=== PATIENT | female | born 1995 | race Caucasian/White ===

== ENCOUNTER → 2021-04-10 14:58 | Outpatient (CLI) | payer MEDICAID, SELFPAY ==
--- NOTE | 2021-04-10 15:48 | US_ITS ---
INDICATION: viability/ light bleeding -- CALL WITH READ BEFORE PATIENT LEAVES EXAMINATION: US OB Transvaginal TECHNIQUE: Transvaginal (for optimal evaluation of the adnexa) pelvic ultrasound was performed. Grayscale, spectral waveform, and color flow Doppler evaluation of the adnexa. COMPARISON: None. FINDINGS: UTERUS: Measures 9.3 x 6 x 4.1 cm. RIGHT OVARY: Measures 3.5 x 2.7 x 2.1 cm. Normal. LEFT OVARY: Measures 2.2 x 1.6 x 1.3 cm. Normal. FREE FLUID: None. INTRAUTERINE GESTATIONAL SAC(s) (size/shape): Single. Mean sac diameter of 1.3 cm. YOLK SAC: Not identified POLE: Not identified US/Transvaginal w/Preg US IMPRESSION: Intrauterine of uncertain viability. No yolk sac or embryo is visualized. This may represent early . Recommend follow-up OB ultrasound in two weeks. Electronically Signed: Redd Rios MD at 16:35 EDT Tel , Service support ,
== END ==
PROVIDERS: Referring Provider Nurse Practitioner Women's Health; Visit Provider Nurse Practitioner Women's Health
DX: O26.899 Other specified pregnancy related conditions, unspecified trimester (principal); Z67.91 Unspecified blood type, Rh negative; O20.0 Threatened abortion
CPT/HCPCS: 36415; 76817; 86850; 86900; 86901

== ENCOUNTER → 2021-04-11 09:22 | Outpatient (CLI) | payer MEDICAID, SELFPAY ==
[2021-04-11 08:48] VITALS: BMI 24.6
[2021-04-11 10:51] LABS: hCG Titer Quant., Serum 13661 mIU/mL (1-3)
== END ==
PROVIDERS: Referring Provider Obstetrics & Gynecology; Visit Provider Obstetrics & Gynecology
DX: O03.9 Complete or unspecified spontaneous abortion without complication (principal)
CPT/HCPCS: 36415; 84702

== ENCOUNTER → 2021-04-13 10:22 | Outpatient (CLI) | payer MEDICAID, SELFPAY ==
[2021-04-11 08:48] VITALS: BMI 24.6
[2021-04-13 11:34] LABS: hCG Titer Quant., Serum 13476 mIU/mL (1-3)
== END ==
PROVIDERS: Visit Provider Obstetrics & Gynecology
DX: O03.9 Complete or unspecified spontaneous abortion without complication (principal)
CPT/HCPCS: 36415; 84702

== ENCOUNTER → 2021-04-14 15:19 | Outpatient (CLI) | payer MEDICAID, SELFPAY ==
[2021-04-14 14:41] VITALS: BMI 24.6
[2021-04-14 18:12] LABS: hCG Titer Quant., Serum 13914 mIU/mL (1-3)
== END ==
PROVIDERS: Referring Provider Obstetrics & Gynecology; Visit Provider Obstetrics & Gynecology
DX: O03.9 Complete or unspecified spontaneous abortion without complication (principal)
CPT/HCPCS: 36415; 84702

== ENCOUNTER → 2021-04-25 13:12 | Outpatient (CLI) | payer MEDICAID, SELFPAY ==
[2021-04-14 14:41] VITALS: BMI 24.6
[2021-04-25 14:19] LABS: hCG Titer Quant., Serum 9029 mIU/mL (1-3)
== END ==
PROVIDERS: Referring Provider Obstetrics & Gynecology; Visit Provider Obstetrics & Gynecology
DX: O03.9 Complete or unspecified spontaneous abortion without complication (principal)
CPT/HCPCS: 36415; 84702

== ENCOUNTER → 2021-05-03 11:36 | Outpatient (CLI) | payer MEDICAID, SELFPAY ==
[2021-04-14 14:41] VITALS: BMI 24.6
[2021-05-03 12:40] LABS: hCG Titer Quant., Serum 3114 mIU/mL (1-3)
== END ==
PROVIDERS: Referring Provider Obstetrics & Gynecology; Visit Provider Obstetrics & Gynecology
DX: O03.9 Complete or unspecified spontaneous abortion without complication (principal)
CPT/HCPCS: 36415; 84702

== ENCOUNTER → 2021-05-18 12:41 | Outpatient (CLI) | payer MEDICAID, SELFPAY ==
[2021-04-14 14:41] VITALS: BMI 24.6
[2021-05-18 13:40] LABS: hCG Titer Quant., Serum 8 mIU/mL (1-3)
== END ==
PROVIDERS: Visit Provider Obstetrics & Gynecology
DX: O03.9 Complete or unspecified spontaneous abortion without complication (principal)
CPT/HCPCS: 36415; 84702

== ENCOUNTER 2021-10-30 17:42 | Outpatient (CLI) | payer MEDICAID, SELFPAY ==
[2021-10-30 18:33] LABS: hCG Titer Quant., Serum 10 mIU/mL (1-3)
== END 2021-10-30 23:59 | disposition short-term general hospital (02) ==
LOC: LAB 17:43
PROVIDERS: Visit Provider Obstetrics & Gynecology
DX: Z34.90 Encounter for supervision of normal pregnancy, unspecified, unspecified trimester (principal)
CPT/HCPCS: 36415; 84702

== ENCOUNTER 2021-11-01 17:57 | Outpatient (CLI) | payer MEDICAID, SELFPAY ==
[2021-11-01 19:11] LABS: hCG Titer Quant., Serum 5 mIU/mL (1-3)
== END 2021-11-01 23:59 | disposition short-term general hospital (02) ==
LOC: LAB 18:00
PROVIDERS: Visit Provider Obstetrics & Gynecology
DX: N91.2 Amenorrhea, unspecified (principal)
CPT/HCPCS: 84702

== ENCOUNTER 2021-11-29 11:38 | Outpatient (CLI) | payer MEDICAID, SELFPAY ==
[2021-11-29 12:53] LABS: hCG Titer Quant., Serum 67 mIU/mL (1-3)
== END 2021-11-29 23:59 | disposition home or self-care (01) ==
PROVIDERS: Referring Provider Obstetrics & Gynecology; Visit Provider Obstetrics & Gynecology
DX: O03.9 Complete or unspecified spontaneous abortion without complication (principal)
CPT/HCPCS: 36415; 84702

== ENCOUNTER 2021-12-01 09:40 | Outpatient (CLI) | payer MEDICAID, SELFPAY ==
[2021-12-01 12:06] LABS: hCG Titer Quant., Serum 152 mIU/mL (1-3)
== END 2021-12-01 23:59 | disposition home or self-care (01) ==
LOC: LAB 09:42
PROVIDERS: PCP Family Medicine; Referring Provider Obstetrics & Gynecology; Visit Provider Obstetrics & Gynecology
DX: O36.80X0 Pregnancy with inconclusive fetal viability, not applicable or unspecified (principal); O09.90 Supervision of high risk pregnancy, unspecified, unspecified trimester; Z3A.00 Weeks of gestation of pregnancy not specified
CPT/HCPCS: 36415; 84702

== ENCOUNTER 2021-12-03 15:00 | Outpatient (CLI) | payer MEDICAID, SELFPAY ==
[2021-12-03 16:08] LABS: hCG Titer Quant., Serum 318 mIU/mL (1-3)
== END 2021-12-03 23:59 | disposition home or self-care (01) ==
LOC: LAB 15:01
PROVIDERS: PCP Family Medicine; Visit Provider Obstetrics & Gynecology
DX: Z34.90 Encounter for supervision of normal pregnancy, unspecified, unspecified trimester (principal)
CPT/HCPCS: 36415; 84702

== ENCOUNTER 2021-12-18 13:53 | Outpatient (CLI) | payer MEDICAID, SELFPAY ==
[2021-12-18] MEDS: Dextrose 5%-Lactated Ringers 1,000 ML 999 ML IV (14:20)
[2021-12-18 14:22] VITALS: BP 107/72; PULSE 71; RESP 16; TEMP 36.6; O2SAT 100
[2021-12-18] MEDS: Ondansetron 4 MG/2 ML Vial IV (14:32)
[2021-12-18 15:30] VITALS: BP 100/54; PULSE 73
== END 2021-12-18 23:59 | disposition home or self-care (01) ==
LOC: MEDOUTP 13:54
PROVIDERS: PCP Family Medicine; Referring Provider Nurse Practitioner Women's Health; Visit Provider Nurse Practitioner Women's Health
DX: E86.0 Dehydration (principal)
CPT/HCPCS: 96361; 96374; A4216; J2405

== ENCOUNTER 2021-12-22 14:02 | Outpatient (CLI) | payer MEDICAID, SELFPAY ==
[2021-12-22 14:08] VITALS: BP 106/68; PULSE 77; RESP 16; TEMP 36.1; O2SAT 97; BMI 27.4
[2021-12-22] MEDS: Dextrose 5%-Lactated Ringers 1,000 ML 999 ML IV (14:14)
[2021-12-22] MEDS: Ondansetron 4 MG/2 ML Vial IV (14:40)
[2021-12-22 15:24] VITALS: BP 95/62; PULSE 70; RESP 16
== END 2021-12-22 23:59 | disposition home or self-care (01) ==
LOC: MEDOUTP 14:02
PROVIDERS: PCP Family Medicine; Referring Provider Nurse Practitioner Women's Health; Visit Provider Nurse Practitioner Women's Health
DX: E86.0 Dehydration (principal)
CPT/HCPCS: 96361; 96374; A4216; J2405

== ENCOUNTER 2021-12-24 12:55 | Outpatient (CLI) | payer MEDICAID, SELFPAY ==
[2021-12-24] MEDS: Dextrose 5%-Lactated Ringers 1,000 ML 999 ML IV (13:18)
[2021-12-24] MEDS: 0.9% NaCl Peripheral Flush Adult/Peds IV ×2 (13:18→13:26)
[2021-12-24] MEDS: Ondansetron 4 MG/2 ML Vial IV (13:18)
[2021-12-24 13:27] VITALS: BP 94/68; PULSE 82; RESP 16; TEMP 36.6; O2SAT 98
[2021-12-24 14:34] VITALS: BP 102/60; PULSE 68; RESP 16; TEMP 36.3; O2SAT 100
== END 2021-12-24 23:59 | disposition home or self-care (01) ==
LOC: MEDOUTP 12:56
PROVIDERS: PCP Family Medicine; Referring Provider Obstetrics & Gynecology; Visit Provider Obstetrics & Gynecology
DX: E86.0 Dehydration (principal)
CPT/HCPCS: 96361; 96374; A4216; J2405

== ENCOUNTER 2021-12-29 16:06 | Outpatient (CLI) | payer MEDICAID, SELFPAY ==
[2021-12-29 16:39] LABS: Amphetamine Urine VISTA NEGATIVE (<1000 ng/mL); Barbiturate Urine VISTA NEGATIVE (< 200 ng/mL); Benzodiazepine Urine VISTA NEGATIVE (< 200 ng/mL); Cocaine Urine VISTA NEGATIVE (< 300 ng/mL); Ecstacy Urine VISTA NEGATIVE (< 500 ng/mL); Methadone Urine VISTA NEGATIVE (< 300 ng/mL); PCP Urine VISTA NEGATIVE (< 25 ng/mL); THC Urine VISTA NEGATIVE (< 50 ng/mL); Vista UDS pH Range 5
[2021-12-31 22:07] LABS: Chlamydia By Nucleic Acid AMP Negative (Negative)
[2022-01-01 16:31] LABS: Gonococcus By Nucleic Acid AMP Negative (Negative)
[2022-01-04 17:06] LABS: HPV Reflexed? NOT INDICATED
== END 2021-12-29 23:59 | disposition home or self-care (01) ==
LOC: LABSPEC 16:07
PROVIDERS: PCP Family Medicine; Visit Provider Obstetrics & Gynecology
DX: Z34.90 Encounter for supervision of normal pregnancy, unspecified, unspecified trimester (principal)
CPT/HCPCS: 80307; 87086; 87088; 87491; 87591; 88175; G0145

== ENCOUNTER 2021-12-31 09:59 | Outpatient (CLI) | payer MEDICAID, SELFPAY ==
[2021-12-31] MEDS: 0.9% NaCl Peripheral Flush Adult/Peds IV ×2 (10:29→10:35)
[2021-12-31] MEDS: Ondansetron 4 MG/2 ML Vial IV (10:29)
[2021-12-31] MEDS: Dextrose 5%-Lactated Ringers 1,000 ML 999 ML IV (10:32)
[2021-12-31 10:39] VITALS: BP 105/62; PULSE 73; RESP 16; TEMP 36.5; O2SAT 100
[2021-12-31 11:16] LABS: AST(SGOT) 16 U/L (15-37); Alanine Aminotransfer ALT/SGPT 32 U/L (13-56); Albumin, Serum 3.7 g/dL (3.2-5.0); Alkaline Phosphatase 42 U/L (45-117); Anion Gap 7 (5-15); BUN 16 mg/dL (7-18); BUN/Creat Ratio 22.3 RATIO (10-20); Calcium,Total 9.4 mg/dL (8.5-10.1); Chloride 105 mmol/L (98-107); Creatinine, Serum 0.72 mg/dL (0.55-1.02); EST Glomerular Filtration Rate 103 mL/min (>60); Est Glom Filt Rate - Afr Amer 124 mL/min (>60); Globulin 3.6 g/dL (2.2-4.2); Glucose 88 mg/dL (74-106); Magnesium 2.2 mg/dL (1.6-2.6); Potassium 3.7 mmol/L (3.5-5.1); Protein, Total 7.3 g/dL (6.4-8.2); Sodium Level 137 mmol/L (136-145); Thyroid Stim Hormone (TSH) 0.25 uIU/mL (0.358-3.74)
[2021-12-31 12:24] VITALS: BP 108/51; PULSE 83; RESP 16; TEMP 36.8; O2SAT 100
== END 2021-12-31 23:59 | disposition home or self-care (01) ==
LOC: MEDOUTP 09:59
PROVIDERS: PCP Family Medicine; Referring Provider Obstetrics & Gynecology; Visit Provider Obstetrics & Gynecology
DX: O21.1 Hyperemesis gravidarum with metabolic disturbance (principal); Z3A.00 Weeks of gestation of pregnancy not specified
CPT/HCPCS: 96365; 96361; 96375; 80053; 83735; 84443; A4216; J2405; J3490

== ENCOUNTER 2022-01-26 14:26 | Outpatient (CLI) | payer MEDICAID, SELFPAY ==
[2022-01-26 15:22] LABS: T4 Free Direct 0.93 ng/dL (0.76-1.46)
[2022-01-26 15:36] LABS: NATERA MAILED SPECIMEN
== END 2022-01-26 23:59 | disposition home or self-care (01) ==
LOC: PAVLAB 14:27
PROVIDERS: PCP Family Medicine; Referring Provider Obstetrics & Gynecology; Visit Provider Obstetrics & Gynecology
DX: Z34.81 Encounter for supervision of other normal pregnancy, first trimester (principal)
CPT/HCPCS: 36415; 84439

== ENCOUNTER → 2022-02-23 | Outpatient (CLI) | payer MEDICAID, SELFPAY ==
[2022-02-23 14:14] LABS: Absolute Lymphocyte Count 0.98 X10^3/uL (0.83-4.51); Absolute Neutrophil Count 5.7 X10^3/uL (2.0-7.7); Basophil# 0.02 X10^3/uL; Basophil% 0.3 % (0-1); Eosinophil# 0.07 X10^3/uL; Hematocrit 32.6 % (37-47); Lymphocyte # 0.98 X10^3/ul (0.83-4.51); Lymphocyte % 13.5 % (19-41); Mean Corp Hgb Conc 33.7 g/dL (32-36); Mean Corpuscular Hgb 32.3 pg (27.0-32.0); Mean Corpuscular Volume 95.6 fL (81-99); Mean Platelet Vol. 9.9 fl (6.2-12.0); Monocyte# 0.48 X10^3/uL; Monocyte% 6.6 % (0-10); NRBC Flagged by Analyzer 0 % (0-5); Neutrophil # 5.68 X10^3/uL (2.7-7.7); Neutrophil % 77.9 % (47-70); Platelet Count 180 K/mm3 (150-450); RBC Distribution Width CV 14.6 % (11.6-14.6); RBC Distribution Width SD 50.7 fl (35.1-43.9); Red Blood Count 3.41 M/mm3 (4.2-5.4); White Blood Count 7.3 K/mm3 (4.4-11.0)
[2022-02-23 16:13] LABS: HIV - WCH Non-Reactive (Nonreactive); Hepatitis B Surface Antigen Non-Reactive (Nonreactive); Hepatitis C Antibody Non-Reactive (Nonreactive); Rubella IgG Reactive (Nonreactive); Syphilis Antibodies Non-reactive
== END | disposition home or self-care (01) ==
LOC: PAVLAB 13:42
PROVIDERS: PCP Family Medicine; Referring Provider Nurse Practitioner Women's Health; Visit Provider Nurse Practitioner Women's Health
DX: O09.90 Supervision of high risk pregnancy, unspecified, unspecified trimester (principal); Z3A.00 Weeks of gestation of pregnancy not specified
CPT/HCPCS: 36415; 85025; 86703; 86762; 86780; 86803; 86850; 86900; 86901; 87340

== ENCOUNTER 2022-05-21 16:42 | Outpatient (CLI) | payer MEDICAID, SELFPAY ==
[2022-05-21 17:03] LABS: Absolute Lymphocyte Count 0.96 X10^3/uL (0.83-4.51); Absolute Neutrophil Count 6.7 X10^3/uL (2.0-7.7); Basophil# 0.02 X10^3/uL; Basophil% 0.2 % (0-1); Eosinophil# 0.06 X10^3/uL; Eosinophils% 0.7 % (0-5); Hematocrit 32.4 % (37-47); Lymphocyte # 0.96 X10^3/ul (0.83-4.51); Lymphocyte % 11.8 % (19-41); Mean Corpuscular Hgb 31.8 pg (27.0-32.0); Mean Corpuscular Volume 93.6 fL (81-99); Mean Platelet Vol. 9.5 fl (6.2-12.0); Monocyte# 0.36 X10^3/uL; Monocyte% 4.4 % (0-10); NRBC Flagged by Analyzer 0 % (0-5); Neutrophil % 82.4 % (47-70); Platelet Count 158 K/mm3 (150-450); RBC Distribution Width CV 13.7 % (11.6-14.6); RBC Distribution Width SD 46.7 fl (35.1-43.9); Red Blood Count 3.46 M/mm3 (4.2-5.4); White Blood Count 8.1 K/mm3 (4.4-11.0)
[2022-05-21 17:21] LABS: Glucose Challenge Gest 1H 50g 152 mg/dL (70-140)
== END 2022-05-21 23:59 | disposition home or self-care (01) ==
LOC: LAB 16:43
PROVIDERS: PCP Family Medicine; Referring Provider Obstetrics & Gynecology; Visit Provider Obstetrics & Gynecology
DX: Z34.90 Encounter for supervision of normal pregnancy, unspecified, unspecified trimester (principal); Z13.1 Encounter for screening for diabetes mellitus
CPT/HCPCS: 36415; 82950; 85025; 86900; 86901

== ENCOUNTER → 2022-05-26 | Outpatient (CLI) | payer MEDICAID, SELFPAY ==
[2022-05-26 07:35] LABS: Glucose GTT-Gestation. Fasting 89 mg/dL (<105)
[2022-05-26 08:41] LABS: Glucose GTT-Gestational 1 Hr 136 mg/dL (<190)
[2022-05-26 10:03] LABS: Glucose GTT-Gestational 2 Hr 115 mg/dL (<165)
[2022-05-26 10:50] LABS: Glucose GTT-Gestational 3 Hr 96 L (<145)
== END | disposition home or self-care (01) ==
LOC: LAB 06:58
PROVIDERS: Referring Provider Obstetrics & Gynecology; Visit Provider Obstetrics & Gynecology
DX: Z13.1 Encounter for screening for diabetes mellitus (principal)
CPT/HCPCS: 36415; 82951; 82952; 86900; 86901

== ENCOUNTER → 2022-07-13 | Outpatient (CLI) | payer MEDICAID, SELFPAY ==
--- NOTE | 2022-07-13 16:06 | US_ITS ---
STUDY: SECOND AND THIRD TRIMESTER OBSTETRICAL ULTRASOUND - LIMITED REASON FOR EXAM: Female, 27 years old routine survey LMP: Unknown. PRIOR ULTRASOUND: None. TECHNIQUE: Transabdominal TECHNICAL QUALITY: Adequate. FINDINGS: There is a single intrauterine fetus. The fetus is in a cephalic presentation. There is demonstrated cardiac activity with a heart rate of 133 bpm. There is a normal amniotic fluid volume. The largest amniotic fluid pocket measures 4.4 cm. The amniotic fluid index (GILBERT) is 12.85 cm. The placenta is fundal in location. There are Grade 1 placental changes. The cervix measures 3.4 cm in length. BIOMETRY: BPD: 8.97 cm: 36 weeks, 2 days HC: 33 cm: 37 weeks, 4 days AC: 33.31 cm: 37 weeks, 2 days FL: 6.83 cm: 35 weeks, 1 days Age by LMP: 36 weeks, 1 days. SAM by LMP: 08/09/2022. age by current US: 37 weeks, 1 days. SAM by current US: 08/02/2022. Estimated weight: 2991 grams, +/- 449 grams, 65.19 percentile. US/OB Limited With Biometrics IMPRESSION: Single live intrauterine at 37 weeks, 1 day by current ultrasound with SAM of 08/02/2022. Heart rate of 133 bpm. No suspicious sonographic findings. Electronically Signed: Edgar Severino MD at 9:20 EDT ,
== END | disposition home or self-care (01) ==
LOC: US 16:05
PROVIDERS: Referring Provider Obstetrics & Gynecology; Visit Provider Obstetrics & Gynecology
DX: O09.90 Supervision of high risk pregnancy, unspecified, unspecified trimester (principal); Z3A.00 Weeks of gestation of pregnancy not specified
CPT/HCPCS: 76816

== ENCOUNTER → 2022-07-17 | Outpatient (CLI) | payer MEDICAID, SELFPAY | END | disposition home or self-care (01) | LOC: LABSPEC 17:05 | PROVIDERS: Visit Provider Obstetrics & Gynecology | DX: Z34.90 Encounter for supervision of normal pregnancy, unspecified, unspecified trimester (principal) | CPT/HCPCS: 87081 ==

== ENCOUNTER 2022-07-21 19:15 | Outpatient (CLI) | payer MEDICAID, SELFPAY ==
[2022-07-21 19:33] VITALS: PULSE 90; O2SAT 98
[2022-07-21 19:35] VITALS: BP 118/61; PULSE 93
[2022-07-21 19:38] VITALS: BP 118/61; PULSE 94; TEMP 36.7; O2SAT 98
[2022-07-21 19:52] VITALS: BMI 34.6
--- NOTE | 2022-07-21 21:32 | OB.TRI.HP_ITS ---
HPI - General HPI Narrative SUSI HAWKINS, is a 27 y/o @ 37 weeks 2 days who presents to L&D for contractions and rule out labor. She denies loss of fluid,vaginal bleeding ,or dec fm. Maternal Data Information SAM Calculator Estimated Delivery Date Method Current WG Current Estimate 08/09/22 LMP (Certain) 37w 3d PFSH PFSH Medical History Abnormal glucose affecting Abnormal Pap smear of cervix Home Medications 1 tab PO/SL DAILY 07/21/22 [History Last Taken 07/21/22 08:00] Prilosec 1 tab PO/SL DAILY 07/21/22 [History Last Taken 07/21/22 08:00] ondansetron HCl 4 mg tablet 4 mg PO Q4H Check with primary doctor 07/21/22 [History Last Taken Unknown] valacyclovir 1 gram tablet (Valtrex) 1,000 mg PO BID Check with primary doctor 07/21/22 [History Last Taken 07/21/22 08:00] Allergy/AdvReac Type Severity Reaction Status Date / Time amoxicillin [Amoxicillin] Allergy Rash Verified 07/21/22 19:53 Family History Mother Thyroid disorder Grandmother Crohn disease Grandfather Diabetes Son Congenital heart disease Social History adopted: No household members: spouse and children number of children: 3 current occupational status: employed 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 cut cord/dad catch: yes : yes PP control planned: discussed. Probable vasectomy discussed possible routes of delivery and associated risks: [] special requests: [] Plans Covid status: immune, discussed Flu vaccine: discussed Tdap vaccine: [] Rhogam: given LARC form signed: yes Problem list reviewed and updated with the most current plan of care details and appropriate orders placed. Relevant counseling for the gestational age provided. Continue routine care and follow up unless otherwise noted in visit notes/problem list details OB Flowsheet Initial Weight: 164 lb Date -?-?-?-?-?-?-?-?-?-?-?-?- EGA Weight BP Urine Prot -?-?-?-?-?-?-?-?-?-?-?-?- Glucose FHR FuHt Pres Dilation -?-?-?-?-?-?-?-?-?-?-?-?- Effaced St Visit Note 12/29/21 -?-?-?-?-?-?-?-?-?-?-?-?- 8w 1d 155 lb (-9 lb) 106/82 -?-?-?-?-?-?-?-?-?-?-?-?- 160 -?-?-?-?-?-?-?-?-?-?-?-?- SM- CRL 1.59cm c ons with LMP, small rim of resolving subchorionic hematoma. 01/09/22 -?-?-?-?-?-?-?-?-?-?-?-?- 9w 5d 155 lb (-9 lb) 112/70 Negative -?-?-?-?-?-?-?-?-?-?-?-?- Negative 175 -?-?-?-?-?-?-?-?-?-?-?-?- SM- symptoms the same. SM- symptoms the same. will add ensure hadn't gotten filled yet, weight stable. declines adding or changing medication at this time, if still needs additional by 12-14 weeks consider steroid pack 01/26/22 -?-?-?-?-?-?-?-?-?-?-?-?- 12w 1d 155 lb (-9 lb) 112/80 Negative -?-?-?-?-?-?-?-?-?-?-?-?- Negative 150 -?-?-?-?-?-?-?-?-?-?-?-?- SM- weight stabl e, add medrol dose pack now. 02/23/22 -?-?-?-?-?-?-?-?-?-?-?-?- 16w 1d 162 lb (-2 lb) 108/62 Negative -?-?-?-?-?-?-?-?-?-?-?-?- Negative 148 -?-?-?-?-?-?-?-?-?-?-?-?- MH-No VB, LOF. Nausea and vomiting significantly improved. Needs PNL and also US ordered. 03/31/22 -?-?-?-?-?-?-?-?-?-?-?-?- 21w 2d 177 lb (+13 lb) 118/66 -?-?-?-?-?-?-?-?-?-?-?-?- 145 -?-?-?-?-?-?-?-?-?-?-?-?- SM- no vb lof go od fm no regular ctx nausea better 05/07/22 -?-?-?-?-?-?-?-?-?-?-?-?- 26w 4d 182 lb (+18 lb) 118/82 -?-?-?-?-?-?-?-?-?-?-?-?- 145 28 -?-?-?-?-?-?-?-?-?-?-?-?- SM- no vb lof go od fm no regular ctx 05/26/22 -?-?-?-?-?-?-?-?-?-?-?-?- 29w 2d 186 lb 6 oz (+22 lb 6 oz) 112/68 Trace -?-?-?-?-?-?-?-?-?-?-?-?- Negative 146 30 -?-?-?-?-?-?-?-?-?-?-?-?- MH-No VB, LOF. G ood FM. Rhogam. 3hr GTT today still pending. 06/10/22 -?-?-?-?-?-?-?-?-?-?-?-?- 31w 3d 190 lb 2 oz (+26 lb 2 oz) 110/73 Negative -?-?-?-?-?-?-?-?-?-?-?-?- Negative 132 32 -?-?-?-?-?-?-?-?-?-?-?-?- JV- no lof, vagi nal bleeding, or dec fm. passed 3 hr gtt, JV- no lof, vaginal bleeding , or dec fm. passed 3 hr gtt. consider growth scan at 36 weeks 06/25/22 -?-?-?-?-?-?-?-?-?-?-?-?- 33w 4d 190 lb 2 oz (+26 lb 2 oz) 111/67 Trace -?-?-?-?-?-?-?-?-?-?-?-?- Negative 131 34 -?-?-?-?-?-?-?-?-?-?-?-?- JV- no lof, vagi nal bleeding, or dec fm. needs to schedule growth scan 07/06/22 -?-?-?-?-?-?-?-?-?-?-?-?- 35w 1d 194 lb 2 oz (+30 lb 2 oz) 117/71 Negative -?-?-?-?-?--?-?-?-?-?-?-?- Negative 140 35 -?-?-?-?-?-?-?-?-?-?-?-?- SM- no vb lof go od fm no regular ctx 07/17/22 -?-?-?-?-?-?-?-?-?-?-?-?- 36w 5d 195 lb 8 oz (+31 lb 8 oz) 195 lb (+31 lb) 103/70 Negative -?-?-?-?-?-?-?-?-?-?-?-?- Negative 134 36 Cephalic 1 .5 -?-?-?-?-?-?-?-?-?-?-?-?- 50 -2 JV- valtre x ordered, gbs done. nrmal growth. labor precations discussed. ROS Constitutional Constitutional: Reports systems reviewed and no addt'l complaints, except as documented Gastrointestinal Gastrointestinal: Denies bloating, constipation, cramping, diarrhea, nausea or vomiting Genitourinary Genitourinary: Reports other Details: Denies vaginal odor, vaginal bleeding, or vaginal discharge ; Denies difficulty urinating or flank pain Physical Exam HEENT normocephalic Resp normal respiratory effort and normal air movement no CVA tenderness Manual OB Exam: other cx is 2/40/-3 per nurse Aye Extremity normal to inspection General Extremity: edema bilateral (trace ) NST FHR Rate Baby A Baseline: 140 Variability:: Moderate Accelerations:: 15 x 15 Decelerations:: None NST Reactive:: Yes FHR Category:: Category I Assessment & Plan (1) Abnormal glucose affecting : COMMENT: 3 hr GTT/WNL (2) Genital herpes affecting : COMMENT: treat at 36 wk (3) Rh negative state in antepartum period: COMMENT: rhogam 28 wk, pp and prn bleeding; given 05/26/22 (4) Family history of congenital heart defect: COMMENT: echo scheduled. oldest son with hypertrophic cardiomyopathy (surgery in 05/2022) (5) History of depression, currently : COMMENT: no meds currently. Tx after 2nd . Stable (6) : COMMENT: GBS neg. anatomy nl, low risk NIPT, carrier declined.ntd screen declined. 07/14 nl growth (7) Supervision of high risk , antepartum: COMMENT: PRR SAM 08/09/22 girl Trena PC: Yahaira Nelson Brantley Spouse: Efraín PLAN: Plan false labor- pt 's cervix is unchanged after 1 hr. She was given options to stay and take a warm shower and be monitored longer, also given options for tylenol and vistaril and declines. She then requested dc to home. Charges/Coding Multi Select Codes Visit Charges Office Visit/Consults: 86070 OV L3 Est Urinary/Genital Urinary/Genital CPT Codes: 99692-62 non-stress test Interp
== END 2022-07-21 22:10 | disposition home or self-care (01) ==
LOC: WPOUT 19:24 → WP 19:25
PROVIDERS: Visit Provider Obstetrics & Gynecology
DX: O47.1 False labor at or after 37 completed weeks of gestation (principal); Z3A.37 37 weeks gestation of pregnancy; O98.313 Other infections with a predominantly sexual mode of transmission complicating pregnancy, third trimester; A60.00 Herpesviral infection of urogenital system, unspecified; O99.810 Abnormal glucose complicating pregnancy; Z82.79 Family history of other congenital malformations, deformations and chromosomal abnormalities
CPT/HCPCS: 59025; 59050; 99218; G0378

== ENCOUNTER 2022-08-01 14:40 | Outpatient (CLI) | payer MEDICAID, SELFPAY ==
[2022-08-01 14:53] VITALS: TEMP 36.8
[2022-08-01 14:54] VITALS: BP 110/59; PULSE 107
[2022-08-01 15:02] VITALS: BMI 34.0
--- NOTE | 2022-08-01 19:25 | OB.TRI.HP_ITS ---
HPI - General HPI Narrative SUSI HAWKINS, is a 27 y/o @ 39 weeks who presents to L&D to rule out labor. membranes were stripped inthe office. Per nursing staff, her cervix is still 2/70/-2. baby is reactive. pt denies lof, vaginal bleeding, or dec fm. PFSH PFSH Medical History (Updated 08/17/22 @ 14:[address] Rut May, DO) Abnormal glucose affecting Abnormal Pap smear of cervix Genital herpes affecting depression Home Medications ondansetron HCl 4 mg tablet 4 mg PO Q4H Check with primary doctor 07/21/22 [History Last Taken Unknown] omeprazole 20 mg capsule,delayed release 20 mg PO DAILY 08/06/22 [History Last Taken 08/10/22] vitamin #56-iron 35 mg and 5 mg-folic acid 1 mg-dha capsule 1 cap PO DAILY 08/06/22 [History Last Taken 08/10/22] naproxen 500 mg tablet 500 mg PO BID PRN PRN Pain #30 tabs 08/11/22 [Rx Last Taken Unknown] Allergy/AdvReac Type Severity Reaction Status Date / Time amoxicillin [Amoxicillin] Allergy Rash Verified 08/11/22 11:35 Family History Mother Thyroid disorder Grandmother Crohn disease Grandfather Diabetes Son Congenital heart disease Surgical History (Updated 08/14/22 @ 16:47 by Heather Huang) Status post vaginal delivery Social History adopted: No household members: spouse and children number of children: 3 current occupational status: employed 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 ROS Constitutional Constitutional: Reports systems reviewed and no addt'l complaints, except as documented Gastrointestinal Gastrointestinal: Denies bloating, constipation, cramping, diarrhea, nausea or vomiting Genitourinary Genitourinary: Reports other Details: Denies vaginal odor, vaginal bleeding, or vaginal discharge ; Denies difficulty urinating or flank pain NST FHR Rate Baby A Baseline: 150 Variability:: Moderate Accelerations:: 15 x 15 Decelerations:: None NST Reactive:: Yes FHR Category:: Category I Assessment & Plan (1) History of depression, currently : COMMENT: no meds currently. Tx after 2nd . Stable (2) Family history of congenital heart defect: COMMENT: echo scheduled. oldest son with hypertrophic cardiomyopathy (surgery in 05/2022) (3) Rh negative state in antepartum period: COMMENT: rhogam 28 wk, pp and prn bleeding; given 05/26/22 (4) Abnormal glucose affecting : COMMENT: 3 hr GTT/WNL (5) False labor: COMMENT: sent home 08/01/22 Charges/Coding Multi Select Codes Urinary/Genital Urinary/Genital CPT Codes: 64738-17 non-stress test Interp
== END 2022-08-01 17:10 | disposition home or self-care (01) ==
LOC: WPOUT 14:46 → WP 14:46
PROVIDERS: Visit Provider Obstetrics & Gynecology
DX: O47.1 False labor at or after 37 completed weeks of gestation (principal); Z3A.39 39 weeks gestation of pregnancy
CPT/HCPCS: 59025; 59050; 99218; G0378

== ENCOUNTER 2022-08-11 12:15 | Inpatient (IN) | payer MEDICAID, SELFPAY ==
[2022-08-11] VITALS (35 sets, daily range): BP systolic 89–115; BP diastolic 49–67; PULSE 80–118; TEMP 36.2–37; O2SAT 98–100; BMI 34.7
[2022-08-11 11:00] LABS: ROM Internal Control Test YES-OK TO RESULT pt. (Internal QC); ROM Patient Test Negative (Negative)
--- NOTE | 2022-08-11 12:24 | HP.PCM.OB_ITS ---
HPI - General General Date of Admission: 08/11/22 HPI Narrative SUSI HAWKINS, is a 27 y/o @ 40 weeks 3 days who presents to L&D triage for leaking fluid. Her Rom + was negative, however the heart rate monitor showed early, late, and variable decels (one of each) and the decision was made to admit to l&D for IOL, Maternal Data Information SAM Calculator Estimated Delivery Date Method Current WG Current Estimate 08/09/22 LMP (Certain) 40w 2d PFSH PFSH Medical History Abnormal glucose affecting Abnormal Pap smear of cervix Home Medications ondansetron HCl 4 mg tablet 4 mg PO Q4H Check with primary doctor 07/21/22 [History Last Taken Unknown] valacyclovir 1 gram tablet (Valtrex) 1,000 mg PO BID Check with primary doctor 07/21/22 [History Last Taken 08/10/22] omeprazole 20 mg capsule,delayed release 20 mg PO DAILY 08/06/22 [History Last Taken 08/10/22] vitamin #56-iron 35 mg and 5 mg-folic acid 1 mg-dha capsule 1 cap PO DAILY 08/06/22 [History Last Taken 08/10/22] Allergy/AdvReac Type Severity Reaction Status Date / Time amoxicillin [Amoxicillin] Allergy Rash Verified 08/11/22 11:35 Family History Mother Thyroid disorder Grandmother Crohn disease Grandfather Diabetes Son Congenital heart disease Social History adopted: No household members: spouse and children number of children: 3 current occupational status: employed current occupation: [employer] and also prn senior living pets and animals: Yes (avoid litter box) pets and animals: cat(s) and dog(s) Smoking Status: Never smoker alcohol intake: never substance use type: does not use additional social history: Efraín History 6 Elective abortions Hx Para 3 Spontaneous abortions 2 Hx # Term Pregnancies Ectopic pregnancies Hx # Pregnancies Multiple births # of living children 3 Past Pregnancies Del. Date Name GA/Weeks Outcome Route Bth Weight Gen Labor Lgth Anesthesia Del Locatn Provider FOB Unknown SAB 03/2021 spontaneous Unknown SAB 10/2021 no intervention spontaneous 04/17/13 Omar 40 live - full term 7# 15oz Male 15 h r epidural [place] Willem 07/17/14 Edna 39 live - full term 7#1oz Female 7 hr epidural [place], [place] Willem 11/18/16 Oseas 39 live - full term 6#15oz Male 10 h r epidural [place] outsole flexer Efraín Delivery Date: Last Updated by: JAYNE Jaramillo NP cytotec Delivery Date: Last Updated by: JAYNE Jaramillo NP 10/2021 pos home test and menses started 2 days later Delivery Date: 04/17/13 Last Updated by: JAYNE Jaramillo NP hyperemesis gravidarum Delivery Date: 11/18/16 Last Updated by: JAYNE Jaramillo NP induced Visit Details Expected Delivery Route/Plan Labor Preferences- CB/BF classes: no labor support person: Efraín labor intervention preferences: [] pain management options preferred: epidural if needed. cut cord/dad catch: yes : yes PP control planned: discussed. Probable vasectomy discussed possible routes of delivery and associated risks: [] special requests: [] Plans Covid status: immune, discussed Flu vaccine: discussed Tdap vaccine: [] Rhogam: given LARC form signed: yes Problem list reviewed and updated with the most current plan of care details and appropriate orders placed. Relevant counseling for the gestational age provided. Continue routine care and follow up unless otherwise noted in visit notes/problem list details OB Flowsheet Initial Weight: 164 lb Date -?-?-?-?-?-?-?-?-?-?-?-?- EGA Weight BP Urine Prot -?-?-?-?-?-?-?-?-?-?-?-?- Glucose FHR FuHt Pres Dilation -?-?-?-?-?-?-?-?-?-?-?-?- Effaced St Visit Note 12/29/21 -?-?-?-?-?-?-?-?--?-?-?-?- 8w 1d 155 lb (-9 lb) 106/82 -?-?-?-?-?-?-?-?-?-?-?-?- 160 -?-?-?-?-?-?-?-?-?-?-?-?- SM- CRL 1.59cm c ons with LMP, small rim of resolving subchorionic hematoma. 01/09/22 -?-?-?-?-?-?-?-?-?-?-?-?- 9w 5d 155 lb (-9 lb) 112/70 Negative -?-?--?-?-?-?-?-?-?-?-?-?- Negative 175 -?-?-?-?-?-?-?-?-?-?-?-?- SM- symptoms the same. SM- symptoms the same. will add ensure hadn't gotten filled yet, weight stable. declines adding or changing medication at this time, if still needs additional by 12-14 weeks consider steroid pack 01/26/22 -?-?-?-?-?-?-?-?-?-?-?-?- 12w 1d 155 lb (-9 lb) 112/80 Negative -?-?-?-?-?-?-?-?-?-?-?-?- Negative 150 -?-?-?-?-?-?-?-?-?-?-?-?- SM- weight stabl e, add medrol dose pack now. 02/23/22 -?-?-?-?-?-?-?-?-?-?-?-?- 16w 1d 162 lb (-2 lb) 108/62 Negative -?-?-?-?-?-?-?-?-?-?-?-?- Negative 148 -?-?-?-?-?-?-?-?-?-?-?-?- MH-No VB, LOF. Nausea and vomiting significantly improved. Needs PNL and also US ordered. 03/31/22 -?-?-?-?-?-?-?-?-?-?-?-?- 21w 2d 177 lb (+13 lb) 118/66 -?-?-?-?-?-?-?-?-?-?-?-?- 145 -?-?-?-?-?-?-?-?-?-?-?-?- SM- no vb lof go od fm no regular ctx nausea better 05/07/22 -?-?-?-?-?-?-?-?-?-?-?-?- 26w 4d 182 lb (+18 lb) 118/82 -?-?-?-?-?-?-?-?-?-?-?-?- 145 28 -?-?-?--?-?-?-?-?-?-?-?-?- SM- no vb lof go od fm no regular ctx 05/26/22 -?-?-?-?-?-?-?-?-?-?-?-?- 29w 2d 186 lb 6 oz (+22 lb 6 oz) 112/68 Trace -?-?-?-?-?-?-?-?-?-?-?-?- Negative 146 30 -?-?-?-?-?-?-?-?-?-?-?-?- MH-No VB, LOF. G ood FM. Rhogam. 3hr GTT today still pending. 06/10/22 -?-?-?-?-?-?-?-?-?-?-?-?- 31w 3d 190 lb 2 oz (+26 lb 2 oz) 110/73 Negative -?-?-?-?-?-?-?-?-?-?-?-?- Negative 132 32 -?-?--?-?-?-?-?-?-?-?-?-?- JV- no lof, vagi nal bleeding, or dec fm. passed 3 hr gtt, JV- no lof, vaginal bleeding , or dec fm. passed 3 hr gtt. consider growth scan at 36 weeks 06/25/22 -?-?-?-?-?-?-?-?-?-?-?-?- 33w 4d 190 lb 2 oz (+26 lb 2 oz) 111/67 Trace -?-?-?-?-?-?-?-?-?-?-?-?- Negative 131 34 -?-?-?-?-?-?-?-?-?-?-?-?- JV- no lof, vagi nal bleeding, or dec fm. needs to schedule growth scan 07/06/22 -?-?-?-?-?-?-?-?-?-?-?-?- 35w 1d 194 lb 2 oz (+30 lb 2 oz) 117/71 Negative -?-?-?-?-?-?-?-?-?-?-?-?- Negative 140 35 -?-?-?-?-?-?-?-?-?-?-?-?- SM- no vb lof go od fm no regular ctx 07/17/22 -?-?-?-?-?-?-?-?-?-?-?-?- 36w 5d 195 lb 8 oz (+31 lb 8 oz) 195 lb (+31 lb) 103/70 Negative -?-?-?-?-?-?-?-?-?-?-?-?- Negative 134 36 Cephalic 1 .5 -?-?-?-?-?-?-?-?-?-?-?-?- 50 -2 JV- valtre x ordered, gbs done. nrmal growth. labor precations discussed. 07/24/22 -?-?-?-?-?-?-?-?-?-?-?-?- 37w 5d 192 lb 6.4 oz (+28 lb 6.4 oz) 122/74 Negative -?-?-?-?-?-?-?-?-?-?-?-?- Negative 145 36 Cephalic 2 -?-?-?-?-?-?-?-?-?-?-?-?- 50 -1 SM- no vb lof good fm no regular ctx 07/30/22 -?-?-?-?-?-?-?-?-?-?-?-?- 38w 4d 195 lb 4 oz (+31 lb 4 oz) 107/61 Negative -?-?-?-?-?-?-?-?-?-?-?-?- Negative 150 38 Cephalic 2 -?-?-?-?-?-?-?-?-?-?-?-?- 70 - JV- no lof vaginal bleeding, or dec fm. pt wants elective induction however there is a pit shortage and will strip membranes 08/06/22 -?-?-?-?-?-?-?-?-?-?-?-?- 39w 4d 194 lb (+30 lb) 123/76 -?-?-?-?-?-?-?-?-?-?-?-?- 140 39 Cephalic 3 -?-?-?-?-?-?-?-?-?-?-?-?- 70 - SM_ no vb lof good fm no reuglar ctx ROS Constitutional Constitutional: Denies change in weight, fatigue, fever(s), headache(s), poor appetite or weakness Eyes Eyes: Denies blurry vision, change in vision, seeing flashes or spots in vision ENT HEENT: Denies dizziness, headache(s), loss taste/smell or sore throat Cardiovascular Cardiovascular: Denies chest pain, dizziness, dyspnea, irregular heart rhythm, leg edema, palpitations, rapid heart rate or vomiting Respiratory/Chest Respiratory/Chest: Denies chest tightness, cough, dyspnea or breast pain Gastrointestinal Gastrointestinal: Denies abdominal pain, anorexia, constipation, cramping, diarrhea, hemorrhoids, vomiting or weight changes Genitourinary Genitourinary: Denies dysuria, flank pain, genital lesions, genital pain, urinary frequency or urinary urgency Musculoskeletal Musculoskeletal: Denies back pain, difficulty walking, joint pain, limited range of motion, muscle cramps or numbness Integumentary Integumentary: Denies lesions or unusual bruising Neurologic Neurologic: Denies abnormal movements, abnormal speech, dizziness, numbness, seizure-like activity or syncope Psychiatric Psychiatric: Denies anxiety, behavioral changes, change in appetite, change in libido, cognitive impairment, confusion, depression, difficulty concentrating, hallucinations or suicidal thoughts Endocrine Endocrinology: Denies excessive sweating, polydipsia or polyuria Hematologic/Lymphatic Hematologic/Lymphatic: Denies easy bleeding, easy bruising or lymphadenopathy Allergic/Immunologic Allergic/Immunologic: Denies itchy eyes, lip swelling, seasonal rhinorrhea, rhinitis, throat swelling, tongue swelling, eczemia, wheezing or asthma Vital Signs Vital Signs Vital Signs: 08/11/22 10:24 08/11/22 10:24 08/11/22 10:24 Temperature Temperature Source Tympanic Pulse Rate 105 H Blood Pressure 111/66 BP Systolic 111 BP Diastolic 66 08/11/22 10:24 Temperature 97.1 F L Temperature Source Pulse Rate Blood Pressure BP Systolic BP Diastolic Weight Weight: 196 lb 3.382 oz Body Mass Index (BMI) 34.7 Physical Exam Const alert, oriented x3, no apparent distress and healthy appearing General Appearance: cooperative; Negative for anxious HEENT normocephalic Face and Sinus: normal facial exam Eyes EOMs intact bilaterally and no scleral icterus General Eye: normal appearance of both eyes Neck full ROM and supple Lymph Lymphatic: no lymphadenopathy noted Chest Chest: abnormal inspection of the chest Resp normal respiratory effort Effort and Inspection: able to speak in complete sentences Cardio regular rate GI soft to palpation and non-tender Inspection: gravid Palpation: soft; Negative for tender external exam normal Amniotic Fluid: ROM+plus negative - Back/Spine no CVA tenderness Extremity normal to inspection, full ROM and no clubbing, cyanosis or edema General Extremity: Negative for calf tenderness or edema Skin Lesions: no lesions Rashes: no rashes Psych mental status grossly normal Labs Labs Labs: Blood Type A NEGATIVE Antibody Screen NEGATIVE Hct 32.4 % (37-47) L Hgb 11.0 g/dL (12.0-15.0) L Pap Smear Negative Obstetrics US Syphilis Total Ab Non-reactive Rubella IgG Antibody Reactive (Nonreactive) Hep Bs Antigen Non-Reactive (Nonreactive) Chlamydia DNA (IDALIA) Negative (Negative) Neisseria gonorrhoeae DNA (IDALIA) Negative (Negative) HIV 1&2 Antibody Non-Reactive (Nonreactive) Glucose 1 Hr 50 gm 152 mg/dL (70-140) H Assessment & Plan (1) Abnormal glucose affecting : COMMENT: 3 hr GTT/WNL (2) Genital herpes affecting : COMMENT: treat at 36 wk (3) Rh negative state in antepartum period: COMMENT: rhogam 28 wk, pp and prn bleeding; given 05/26/22 (4) Family history of congenital heart defect: COMMENT: echo scheduled. oldest son with hypertrophic cardiomyopathy (surgery in 05/2022) (5) History of depression, currently : COMMENT: no meds currently. Tx after 2nd . Stable (6) : QUALIFIERS: Weeks of gestation: 39 weeks Qualified Code(s): Z3A.39 - 39 weeks gestation of COMMENT: GBS neg. anatomy nl, low risk NIPT, carrier declined.ntd screen declined. 07/14 nl growth (7) Supervision of high risk , antepartum: COMMENT: PRR SAM 08/09/22 [place] PC: Yahaira Nelson Brantley Spouse: Efraín PLAN: Plan Patient presents IOL, plan management for with pitocin/AROM. Pain management: plans epidural. GBS negative. Management of any complications: none I have reviewed the [facility] and made any clinically relevant updates.
[2022-08-11] MEDS: Lactated Ringers 1,000 ML 50 ML IV (13:50)
[2022-08-11] MEDS: Oxytocin 15 Units/NS 250ml 15 UNITS/250 ML IV.SOLN 2 UNITS IV (13:55)
[2022-08-11 14:13] LABS: Absolute Lymphocyte Count 0.76 X10^3/uL (0.83-4.51); Absolute Neutrophil Count 7.6 X10^3/uL (2.0-7.7); Basophil# 0.01 X10^3/uL; Basophil% 0.1 % (0-1); Eosinophil# 0.04 X10^3/uL; Eosinophils% 0.5 % (0-5); Hematocrit 30.9 % (37-47); Hemoglobin 10.1 g/dL (12.0-15.0); Lymphocyte # 0.76 X10^3/ul (0.83-4.51); Lymphocyte % 8.6 % (19-41); Mean Corp Hgb Conc 32.7 g/dL (32-36); Mean Corpuscular Hgb 29.4 pg (27.0-32.0); Mean Corpuscular Volume 89.8 fL (81-99); Mean Platelet Vol. 9.5 fl (6.2-12.0); Monocyte# 0.45 X10^3/uL; Monocyte% 5.1 % (0-10); NRBC Flagged by Analyzer 0 % (0-5); Neutrophil # 7.56 X10^3/uL (2.7-7.7); Neutrophil % 85.2 % (47-70); Platelet Count 169 K/mm3 (150-450); RBC Distribution Width CV 14.8 % (11.6-14.6); RBC Distribution Width SD 48.7 fl (35.1-43.9); Red Blood Count 3.44 M/mm3 (4.2-5.4); White Blood Count 8.9 K/mm3 (4.4-11.0)
[2022-08-11] MEDS: LACTATED RINGERS 500 ML 999 ML IV (16:38)
[2022-08-11] MEDS: fentaNYL-bupivacaine (epidural) 100 ML BAG EPIDURAL (17:27)
--- NOTE | 2022-08-11 19:04 | PCM.PN.BLA ---
Progress Note pt is sitting up comfortably after epidural and after AROM at 4:00 (3 hours ago) The fluid was clear. current tracing: FHT:Moderate variability reactive no decelerations category I tracing [place]: q2-3 min Contractions cs: 5/80/-2, posterior reviewed tracing abnormalities since last note: improved A/P: 40 weeks 3 days IOL for variable decel and one late decel earlier in the day, post dates -continue pitocin, anticipate tonight.
--- NOTE | 2022-08-11 21:28 | OP.PCM_ITS ---
Assessment & Plan (1) Supervision of high risk , antepartum: COMMENT: PRR SAM 08/09/22 francoise Albrecht PC: Yahaira Nelson Brantley Spouse: Efraín (2) : QUALIFIERS: Weeks of gestation: 39 weeks Qualified Code(s): Z3A.39 - 39 weeks gestation of COMMENT: GBS neg. anatomy nl, low risk NIPT, carrier declined.ntd screen declined. 07/14 nl growth (3) History of depression, currently : COMMENT: no meds currently. Tx after 2nd . Stable (4) Family history of congenital heart defect: COMMENT: echo scheduled. oldest son with hypertrophic cardiomyopathy (surgery in 05/2022) (5) Rh negative state in antepartum period: COMMENT: rhogam 28 wk, pp and prn bleeding; given 05/26/22 (6) Genital herpes affecting : COMMENT: treat at 36 wk (7) Abnormal glucose affecting : COMMENT: 3 hr GTT/WNL Maternal Data Information SAM Calculator Estimated Delivery Date Method Current WG Current Estimate 08/09/22 LMP (Certain) 40w 2d Final SAM: 08/09/22 Gestational age: 40 weeks 2 days Vaginal Delivery Maternal Presentation Maternal Presentation: Medically Indicated Induction ( decels) Type of Induction: Pitocin and Amniotomy Operative Information Date of Procedure: 08/11/22 Pre-Operative Diagnosis: @ 40 weeks 2 days, heart rate decelerations Post-Operative Diagnosis: @ 40 weeks 2 days, heart rate decelerations Type of Anesthesia: Epidural Drain: Steel to straight drain Estimated Blood Loss: 100cc Findings Presentation: Vertex Amniotic Membrane Rupture Type: Artificial Time of Membrane Rupture: 4:00 pm 08/11/22 Amniotic Fluid Description: Clear Placental Delivery Description: Spontaneous Placenta Disposition: [facility] Cord Vessel Description: 3 Vessels Cord Entanglement: None Infant A Gender: Female (1 minute): 9 (5 minute): 9 Delayed Cord Clamping: Yes Post Vaginal Delivery Medications Given After Delivery: IV Pitocin Episiotomy Description: None Laceration: None Complication Complications: None Multi Select Codes Urinary/Genital Urinary/Genital CPT Codes: 68713 Vaginal Delivery+ PP Care([facility])
--- NOTE | 2022-08-11 21:31 | DCINST_ITS ---
Discharge Instructions Diet Discharge Diet: No restrictions Activity Discharge Activity: Return to Normal Activity, May Not Drive (while taking narcotic pain medications.) and May Shower May resume sexual activity in: 4-6 weeks Dressing / Incision Call your doctor if your incision/area has: Continuous Slow Oozing, Sudden Increased Bleeding, Increased Pain/ Swelling, Increased Redness and Foul Smelling Discharge Follow Up Care Please Follow Up With: Rut May DO When: Call [phone] to make an appointment with your doctor in 6 weeks. If you had elevated blood pressure or 4th degree laceration, you will need to be seen in 2 weeks. Test Results: Test results from this visit will be discussed in further detail at your follow- up appointment, if applicable. Discharge Plan Admission Admit Date/Time: 08/11/22 12:15 Primary Reason for Your Visit: vaginal delivery Attending Provider: Lilo Jerez Primary Care Provider: [place] PhysicianCodie Primary Discharge Orders/Prescriptions Prescriptions: New naproxen 500 mg tablet 500 mg PO BID PRN PRN (Reason: Pain) Qty: 30 0RF Continued omeprazole 20 mg capsule,delayed release(DR/EC) 20 mg PO DAILY PNV #[id number] acid-dha 35 mg iron-5 mg iron-1 mg capsule 1 cap PO DAILY ondansetron HCl 4 mg tablet 4 mg PO Q4H Discontinued valacyclovir [Valtrex] 1 gram tablet 1,000 mg PO BID Referrals / Follow Up: Care Physician,No Primary [Primary Care Provider] - Disposition Disposition (needs filled in before D/C Order can be placed): Home, Self Care
[2022-08-11] MEDS: Acetaminophen 500 MG Tablet 1000 MG PO (22:10)
[2022-08-12 04:05] VITALS: BP 125/89; RESP 16; TEMP 36.1
[2022-08-12 04:11] VITALS: BP 125/59; PULSE 80
[2022-08-12 08:31] VITALS: BP 102/75; PULSE 87; RESP 16; TEMP 36.5
[2022-08-12] MEDS: Acetaminophen 500 MG Tablet 1000 MG PO ×2 (11:02→19:36)
[2022-08-12 12:18] VITALS: BP 105/61; PULSE 88; RESP 15; TEMP 36.3
--- NOTE | 2022-08-12 12:58 | PN.OBGYN_ITS ---
Subjective Subjective Patient doing well without complaints. Tolerating PO. Ambulating and voiding without difficulty. Feeding well. Denies chest pain, shortness of breath, calf pain/swelling, fevers, chills, lightheadedness. Objective Data Objective Data Vital Signs: Vital Signs Temp Pulse Resp BP Pulse Ox O2 Del Method 97.3 F L 88 15 105/61 98 Room Air 08/12/22 12:18 08/12/22 12:18 08/12/22 12:18 08/12/22 12:18 08/11/22 23:20 08/12/22 12:18 Oxygen Delivery Method Room Air Weight: 196 lb 3.382 oz Body Mass Index (BMI) 34.7 Intake & Output: Intake and Output for Last 24 Hours 08/10/22 08/11/22 08/12/22 23:59 23:59 23:59 Intake Total 1699.93 / 1699.93 Output Total 700 / 700 Balance 1699.93 / 1699.93 -700 / -700 Lab / Micro Data Attestation: I reviewed the patient's lab results. Result Diagrams: 08/11/22 13:50 Labs: Laboratory Results - last 24 hr 08/11/22 13:50: WBC 8.9, RBC 3.44 L, Hgb 10.1 L, Hct 30.9 L, MCV 89.8, MCH 29.4, MCHC 32.7, RDW Std Deviation 48.7 H, RDW Coeff of Cally 14.8 H, Plt Count 169, MPV 9.5, Immature Gran % (Auto) 0.500, Neut % (Auto) 85.2 H, Lymph % (Auto) 8.6 L, [place] % (Auto) 5.1, Eos % (Auto) 0.5, Baso % (Auto) 0.1, Absolute Neuts (auto) 7.6, Absolute Lymphs (auto) 0.76 L, Nucleated RBC % 0 08/11/22 13:50: Blood Type A NEGATIVE, Antibody Screen NEGATIVE 08/11/22 23:20: Screen NEGATIVE, Baby's Blood Type O POSITIVE, Baby's [place] NEGATIVE Micro: Microbiology 08/11/22 14:00 Nasal Secretion SARS-CoV-2 Antigen (Rapid) - Final Physical Exam Narrative pt found lying in bed, comfortable. breast soft and without redness. abdomen soft. fundus 1below u. normal lochia. no clots. repair with approximated tissue. negative homans Const alert, oriented x3 and no apparent distress General Appearance: comfortable Bimanual Exam - Vag & Uterus: uterus non-tender
[2022-08-12 16:48] VITALS: BP 114/59; PULSE 87; RESP 16; TEMP 36.7
[2022-08-12 19:34] VITALS: BP 111/56; PULSE 82; RESP 16; TEMP 36.9
[2022-08-13 02:20] VITALS: BP 102/61; PULSE 75; RESP 17; TEMP 36.5
--- NOTE | 2022-08-13 09:05 | PCM.PN.OB ---
Subjective Subjective Patient doing well without complaints. Tolerating PO. Ambulating and voiding without difficulty. Feeding well. Denies chest pain, shortness of breath, calf pain/swelling, fevers, chills, lightheadedness. Objective Data Objective Data Vital Signs: Vital Signs Temp Pulse Resp BP Pulse Ox O2 Del Method 97.7 F L 75 17 102/61 98 Room Air 08/13/22 02:20 08/13/22 02:20 08/13/22 02:20 08/13/22 02:20 08/11/22 23:20 08/12/22 16:48 Oxygen Delivery Method Room Air Weight: 196 lb 3.382 oz Body Mass Index (BMI) 34.7 Intake & Output: Intake and Output for Last 24 Hours 08/11/22 08/12/22 08/13/22 23:59 23:59 23:59 Intake Total 1699.93 / 1699.93 Output Total 700 / 700 Balance 1699.93 / 1699.93 -700 / -700 Lab / Micro Data Result Diagrams: 08/11/22 13:50 Micro: Microbiology 08/11/22 14:00 Nasal Secretion SARS-CoV-2 Antigen (Rapid) - Final ROS Constitutional Constitutional: Denies chills, fatigue, fever(s), poor appetite or weakness Eyes Eyes: Denies blurry vision, change in vision, seeing flashes or spots in vision ENT HEENT: Denies dizziness, headache(s), loss taste/smell or sore throat Cardiovascular Cardiovascular: Denies chest pain, dizziness, dyspnea, irregular heart rhythm, palpitations or rapid heart rate Respiratory/Chest Respiratory/Chest: Denies chest tightness, cough, dyspnea or breast pain Gastrointestinal Gastrointestinal: Denies abdominal pain, constipation or vomiting Genitourinary Genitourinary: Denies dysuria or flank pain Musculoskeletal Musculoskeletal: Denies difficulty walking, joint pain, limited range of motion or numbness Neurologic Neurologic: Denies abnormal movements, abnormal speech, dizziness, numbness, seizure-like activity or syncope Psychiatric Psychiatric: Denies anxiety, behavioral changes, change in appetite, confusion, depression or suicidal thoughts Physical Exam Const alert, oriented x3 and no apparent distress General Appearance: cooperative and comfortable Resp normal respiratory effort Cardio regular rate GI normal to inspection, nondistended, normoactive bowel sounds GI Narrative: uterus is firm below umbilicus Palpation: soft Back/Spine no CVA tenderness and thoraco-lumbar ROM normal Extremity normal to inspection, no clubbing, cyanosis or edema, no calf tenderness and no pedal edema Psych mental status grossly normal, thought process normal, cooperative, affect normal, speech normal, activity/motor behavior normal, denies homicidal ideation and denies suicidal ideation Assessment & Plan (1) Status post vaginal delivery: PLAN: Plan s/p PPD # 2 1. routine post delivery care 2. breast feeding- support given 3. rh positive 4. rubella immune dc to home today. follow up in 6 weeks. pt declines home going medication for pain.
[2022-08-13 09:40] VITALS: BP 105/54; PULSE 84; RESP 14; TEMP 36.9
--- NOTE | 2022-08-13 15:17 | CASEMGMT ---
Social Work Brief Assessment Labor and Delivery Unit Patient Address:[address] [place] [address] Phone number: [phone] Date of Referral/Notification: 08.12.2022 Time of Referral: 1809 Referred By: Dr. Garces Date of Intervention: 08.13.2022 Time of Intervention: Approximately 0930 Reason for Referral: Maternal history of depression. Informant: Medical record and mother of baby (MOB) Ciera Méndez; father of baby (FOB) Efraín Méndez present. History: JOSE ALBERTO is a 27 year old female, to the FOB for 2 years though together since 2013. MOB denied any abuse or safety concerns upon admission to labor and delivery. No indication during social work assessment. MOB is G6, P3 to 4 after delivering baby girl Trena Méndez on 08.11.2022. care started at 8 weeks and no issues reported. FOB is the father to JOSE ALBERTO's 2 youngest children and in process of adopting JOSE ALBERTO's second child. Not adopting the first due the first still having a relationship with the biological father. MOB's minor children include: Omar (04.17.2013), Edna (07.17.2014), Oseas (11.18.2016), and Trena. 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 FOB works as a catering manager at an [employer]. MOB and FOB both deny any substance use issues or dependence. Maternal drug screen negative on 12.29.2021. MOB reports history of depression after Edna was born, reporting situationally things were stressful with Edna's father, even at the time of . MOB reports sadness and crying a lot, eventually treated with Zoloft which helped. Denied that the PPD impeded care of children. Denies any PPD after Oseas was born. No reports of any SI. Son Omar is in counseling related to some anger issues and coping related to father/child relationship issues. Assessment: Met with MOB and FOB in room, introducing to self and social work role. MOB holding baby, attentive and appearing relaxed with handling of . MOB held good eye contact, full affect, euthymic mood. MOB spontaneous in conversation. MOB open and talkative about history of PPD, treatment, and stressors leading to PPD. MOB reports to feel good support system, and FOB reports will be off of work until next week. MOB denies any concerns with housing, transportation, or baby supplies. Plans to provide breast milk and if needed supplement with formula. Reports will talk to physician provider should PPD symptoms arise in the future. Provided MOB with resource packet on mood and anxiety disorders including online and local supports. No voiced concerns by nursing staff regarding parent/child interactions or bonding. Plan: MOB and to discharge home. Resources for home going provided. home for the next week for additional support. No further needs requested or indicated. -ANDRIA Dawn, [place] *This note was generated with Eloqua dictation software. It may contain incorrect words, spelling, and punctuation that were not noted in review of the chart prior to signing*
== END 2022-08-13 09:43 | disposition home or self-care (01) | DRG 560 ==
LOC: WPOUT 12:15 → WP 12:15
PROVIDERS: Admitting Provider Obstetrics & Gynecology; Referring Provider Obstetrics & Gynecology; Visit Provider Obstetrics & Gynecology
DX: O76 Abnormality in fetal heart rate and rhythm complicating labor and delivery (principal); Z37.0 Single live birth; O99.814 Abnormal glucose complicating childbirth; O26.893 Other specified pregnancy related conditions, third trimester; Z3A.40 40 weeks gestation of pregnancy; Z67.11 Type A blood, Rh negative; Z86.19 Personal history of other infectious and parasitic diseases; Z87.59 Personal history of other complications of pregnancy, childbirth and the puerperium; Z82.79 Family history of other congenital malformations, deformations and chromosomal abnormalities
CPT/HCPCS: 59025; 59050; 84112; 85025; 85461; 86850; 86900; 86901; 87426; 90384; 99218; J7120; G0378; J2790

== ENCOUNTER → 2022-10-13 | Outpatient (CLI) | payer MEDICAID, SELFPAY | END | disposition home or self-care (01) | LOC: LABSPEC 16:19 | PROVIDERS: Referring Provider Nurse Practitioner Women's Health; Visit Provider Nurse Practitioner Women's Health | DX: N89.8 Other specified noninflammatory disorders of vagina (principal) | CPT/HCPCS: 87070; 87205 ==

== ENCOUNTER → 2022-12-10 | Outpatient (CLI) | payer MEDICAID, SELFPAY ==
[2022-12-10 12:10] LABS: Absolute Lymphocyte Count 1.12 X10^3/uL (0.83-4.51); Absolute Neutrophil Count 2.7 X10^3/uL (2.0-7.7); Basophil# 0.02 X10^3/uL; Basophil% 0.5 % (0-1); Eosinophil# 0.04 X10^3/uL; Eosinophils% 0.9 % (0-5); Hemoglobin 13.3 g/dL (12.0-15.0); Lymphocyte # 1.12 X10^3/ul (0.83-4.51); Lymphocyte % 26.5 % (19-41); Mean Corp Hgb Conc 33.3 g/dL (32-36); Mean Corpuscular Hgb 29.7 pg (27.0-32.0); Mean Corpuscular Volume 89.3 fL (81-99); Mean Platelet Vol. 10.3 fl (6.2-12.0); Monocyte# 0.33 X10^3/uL; Monocyte% 7.8 % (0-10); NRBC Flagged by Analyzer 0 % (0-5); Neutrophil # 2.71 X10^3/uL (2.7-7.7); Neutrophil % 64.1 % (47-70); Platelet Count 204 K/mm3 (150-450); RBC Distribution Width CV 14.4 % (11.6-14.6); RBC Distribution Width SD 46.9 fl (35.1-43.9); Red Blood Count 4.48 M/mm3 (4.2-5.4); White Blood Count 4.2 K/mm3 (4.4-11.0)
[2022-12-10 12:49] LABS: ALB/GLOB Ratio 1.2 RATIO (0.9-2.4); AST(SGOT) 14 U/L (15-37); Alanine Aminotransfer ALT/SGPT 43 U/L (13-56); Albumin, Serum 4.2 g/dL (3.2-5.0); Alkaline Phosphatase 65 U/L (45-117); Anion Gap 6 (5-15); BUN 21 mg/dL (7-18); BUN/Creat Ratio 24.6 RATIO (10-20); Calcium,Total 9.6 mg/dL (8.5-10.1); Chloride 107 mmol/L (98-107); Creatinine, Serum 0.85 mg/dL (0.55-1.02); EST Glomerular Filtration Rate 84 mL/min (>60); Est Glom Filt Rate - Afr Amer 101 mL/min (>60); Ferritin 10 ng/mL (8-252); Globulin 3.4 g/dL (2.2-4.2); Glucose 96 mg/dL (74-106); Iron 121 ug/dL (50-170); Iron Binding Capacity,Total 352 ug/dL (250-450); PERCENT IRON SATURATION 34.4 % (15.0-55.0); Protein, Total 7.6 g/dL (6.4-8.2); Sodium Level 140 mmol/L (136-145); Thyroid Stim Hormone (TSH) 1.68 uIU/mL (0.358-3.74)
[2022-12-10 14:56] LABS: Vitamin B12 316 pg/mL (211-911); Vitamin D,25 Hydroxy 18.1 ng/mL
== END | disposition home or self-care (01) ==
LOC: BIMLAB 10:46
PROVIDERS: PCP Nurse Practitioner Family; Referring Provider Nurse Practitioner Family; Visit Provider Nurse Practitioner Family
DX: D50.9 Iron deficiency anemia, unspecified (principal); F41.9 Anxiety disorder, unspecified; E56.9 Vitamin deficiency, unspecified
CPT/HCPCS: 36415; 80053; 82306; 82607; 82728; 83540; 83550; 84443; 85025

== ENCOUNTER → 2025-01-16 | Outpatient (CLI) | payer OTHER, SELFPAY ==
[2025-01-16 12:39] LABS: Absolute Lymphocyte Count 1.15 X10^3/uL (0.83-4.51); Absolute Neutrophil Count 3.1 X10^3/uL (2.0-7.7); Basophil# 0.04 X10^3/uL; Basophil% 0.8 % (0-1); Eosinophil# 0.07 X10^3/uL; Eosinophils% 1.5 % (0-5); Hematocrit 41.9 % (37-47); Hemoglobin 14.2 g/dL (12.0-15.0); Lymphocyte # 1.15 X10^3/ul (0.83-4.51); Lymphocyte % 24.2 % (19-41); Mean Corp Hgb Conc 33.9 g/dL (32-36); Mean Corpuscular Hgb 31.6 pg (27.0-32.0); Mean Corpuscular Volume 93.1 fL (81-99); Monocyte# 0.35 X10^3/uL; Monocyte% 7.4 % (0-10); NRBC Flagged by Analyzer 0 % (0-5); Neutrophil # 3.14 X10^3/uL (2.7-7.7); Neutrophil % 65.9 % (47-70); Platelet Count 233 K/mm3 (150-450); RBC Distribution Width CV 12.6 % (11.6-14.6); White Blood Count 4.8 K/mm3 (4.4-11.0)
[2025-01-16 14:51] LABS: Ferritin 54 ng/mL (22-378); Vitamin B12 268 pg/mL (180-914)
[2025-01-16 15:01] LABS: Cholesterol 149 mg/dL (<=200); High Density Lipoprotein 31 mg/dL; Low Density Lipoprotein Calc. 114 mg/dL; Triglycerides 21 mg/dL; Very Low Density Lipoprotein 4 mg/dL (5-40); cholesterol:hdl ratio screen 4.82
[2025-01-16 20:56] LABS: Hemoglobin A1c 4.9 % (<=5.6)
[2025-01-16 23:30] LABS: Iron 103 ug/dL (50-170); Iron Binding Capacity,Total 302 ug/dL (250-450); Iron Binding Capacity,Unsat 199 ug/dL (228-428)
== END | disposition home or self-care (01) ==
LOC: VSLAB 09:20
PROVIDERS: PCP Nurse Practitioner Family; Visit Provider Nurse Practitioner Family
DX: E61.1 Iron deficiency (principal); R53.83 Other fatigue; Z13.220 Encounter for screening for lipoid disorders; Z13.1 Encounter for screening for diabetes mellitus
CPT/HCPCS: 36415; 80061; 82306; 82607; 82728; 83036; 83540; 83550; 84439; 84443; 85025

== ENCOUNTER → 2025-05-24 | Outpatient (CLI) | payer OTHER, SELFPAY ==
[2025-05-30 07:08] LABS: HPV APTIMA, High Risk Negative (Negative)
== END | disposition home or self-care (01) ==
LOC: LABSPEC 14:02
PROVIDERS: PCP Nurse Practitioner Family; Visit Provider Family Medicine
DX: Z01.419 Encounter for gynecological examination (general) (routine) without abnormal findings (principal)
CPT/HCPCS: 87624; 88175; G0145